=== PATIENT | female | born 1995 | race Caucasian/White ===

== ENCOUNTER 2019-12-01 13:30 | Outpatient (RCR) | payer MEDICAID, SELFPAY | END 2019-12-01 23:59 | LOC: NS 13:30 | PROVIDERS: Family Provider Family Medicine; PCP Family Medicine; Visit Provider Orthopaedic Surgery | DX: Z71.3 Dietary counseling and surveillance (principal); E66.9 Obesity, unspecified; Z68.41 Body mass index [BMI] 40.0-44.9, adult | CPT/HCPCS: 97802; 97803 ==

== ENCOUNTER → 2021-05-16 11:37 | Outpatient (CLI) | payer MEDICAID, SELFPAY ==
[2021-05-16 12:04] LABS: Hematocrit 37.3 % (37-47); Hemoglobin 12.7 g/dL (12.0-15.0); Mean Corpuscular Hgb 31.8 pg (27.0-32.0); Mean Corpuscular Volume 93.5 fL (81-99); Platelet Count 240 K/mm3 (150-450); RBC Distribution Width CV 11.8 % (11.6-14.6); RBC Distribution Width SD 40.5 fl (35.1-43.9); Red Blood Count 3.99 M/mm3 (4.2-5.4)
[2021-05-16 12:43] LABS: Estradiol 64.3 pg/mL; Follicle Stimulating Hormone 2.6 mIU/mL; Luteinizing Hormone 2.6 mIU/mL; Prolactin 9.5 ng/mL; T4 Free Direct 0.86 ng/dL (0.76-1.46)
[2021-05-20 16:20] LABS: HPV Reflexed? NOT INDICATED
[2021-05-21 14:02] LABS: Testosterone Free 3.6 pg/mL (0.0-4.2)
== END ==
PROVIDERS: PCP Family Medicine; Visit Provider Obstetrics & Gynecology
DX: R10.2 Pelvic and perineal pain (principal); N83.209 Unspecified ovarian cyst, unspecified side; E66.3 Overweight; R10.30 Lower abdominal pain, unspecified
CPT/HCPCS: 36415; 82627; 82670; 83001; 83002; 84146; 84402; 84439; 84443; 85027; 88175; 82626; G0145